=== PATIENT | female | born 1945 | race African-American/Black ===

== ENCOUNTER 2021-06-01 12:31 | Inpatient (IN) | payer OTHER, MEDICAID ==
[~2021-06-01] VITALS: Ht 167.6 cm; Wt 111.5 kg
[2021-06-01] MEDS ORDERED: PANTOPRAZOLE 40 MG TAB PO ONE (13:15)
[2021-06-01 14:20] LABS: Basophils # (auto) 0 10 ^3/uL (0-0.2); Basophils % (auto) 0.5 % (0.0-2.0); Eosinophils # (auto) 0 10 ^3/uL (0-0.8); Hematocrit 38.6 % (36.0-46.0); Hemoglobin 12.7 g/dL (12.2-16.2); Lymphocytes # (auto) 1.2 10 ^3/uL (0.4-5.4); Mean Corpuscular Hemoglobin 29.9 pg (28.0-32.0); Mean Corpuscular Hgb Conc. 32.8 g/dL (32.0-36.0); Monocytes # (auto) 0.5 10 ^3/uL (0-1.3); Monocytes % (auto) 11.5 % (0.0-12.0); Neutrophils # (auto) 2.5 10 ^3/uL (1.6-8.6); Nucleated Red Blood Cells % 0.1 %; Red Blood Cells 4.24 10^6/uL (4.0-5.20); Red Cell Distribution Width 14.3 % (11.8-14.3); White Blood Cell 4.2 10^3/uL (4.4-10.8)
[2021-06-01 15:02] LABS: Albumin 3.7 g/dL (3.4-5.0); Anion Gap 7 (5-15); Blood Urea Nitrogen 6 mg/dL (7-18); Calcium 8.9 mg/dL (8.5-10.1); Carbon Dioxide 27 mmol/L (21-32); Chloride 107 mmol/L (98-107); Glucose 94 mg/dL (74-106); Magnesium 2.3 mg/dL (1.6-2.6); Potassium 4.3 mmol/L (3.5-5.1); Sodium 141 mmol/L (136-145)
[2021-06-01 15:14] LABS: Alanine Aminotransferase 22 U/L (13-56); Alkaline Phosphatase 102 U/L (45-117); Aspartate Aminotransferase 25 U/L (15-37); BUN/Creatinine Ratio 6.7; Bilirubin, Total 1.3 mg/dL (0.2-1.0); GFR African American 80 mL/min; GFR Non-African American 66 mL/min; Total Protein 7.2 g/dL (6.4-8.2)
[2021-06-01 15:44] LABS: Urine Bacteria FEW /hpf (None Seen); Urine Blood Negative /uL (Negative); Urine Specific Gravity 1.005 (1.001-1.035); Urine WBC 1 /hpf (0 - 5)
[2021-06-01] MEDS ORDERED: hydrALAZINE HCL 20 MG/ML VL IV PRN ×2 (18:15→23:30)
[2021-06-01] MEDS ORDERED: HYDROcodone-ACET 5/325MG TAB PO PRN ×2 (18:15→23:30)
[2021-06-01] MEDS ORDERED: NITROGLYCERIN 0.4 MG SL TAB SL PRN ×2 (18:15→23:30)
[2021-06-01] MEDS ORDERED: METOPROLOL TARTRATE 25 MG TAB PO SCH (18:15)
[2021-06-01] MEDS ORDERED: ONDANSETRON HCL 4 MG/2 ML VIAL IV PRN ×2 (18:15→23:15)
[2021-06-01] MEDS ORDERED: MORPHINE SULF INJ 2 MG/ML SYRINGE 1ML IV PRN ×4 (18:15→23:30)
[2021-06-01] MEDS ORDERED: ACETAMINOPHEN 500 MG TAB PO PRN ×2 (18:15→23:30)
[2021-06-01 18:39] LABS: CRP High Sensitivity 0.5 mg/dL (< 0.3)
[2021-06-01] MEDS ORDERED: METOPROLOL TARTRATE 25 MG TAB ONE (20:33)
[2021-06-01] MEDS ORDERED: hydrALAZINE HCL 20 MG/ML VL ONE (21:39)
[2021-06-01] MEDS ORDERED: ATORVASTATIN 20 MG TAB PO SCH (22:00)
[2021-06-01 23:20] VITALS: BP 186/105
[2021-06-01 23:32] VITALS: BP 176/105
[2021-06-01] MEDS: METOPROLOL TARTRATE 25 MG TAB PO SCH (23:57)
[2021-06-01] MEDS: ATORVASTATIN 20 MG TAB PO SCH (23:58)
[2021-06-02] MEDS ORDERED: LEVO112T2 PO (00:17)
[2021-06-02] MEDS ORDERED: ASPI-543 PO (00:19)
[2021-06-02 04:28] VITALS: BP 152/79
[2021-06-02 08:30] VITALS: BP 136/71
[2021-06-02] MEDS ORDERED: PANTOPRAZOLE 40 MG TAB PO SCH (10:00)
[2021-06-02] MEDS ORDERED: ASPirin-EC 81 mg tab PO SCH (10:00)
[2021-06-02] MEDS ORDERED: LISINOPRIL 10 MG TAB PO SCH (10:00)
[2021-06-02] MEDS ORDERED: METOPROLOL TARTRATE 25 MG TAB PO SCH (10:00)
[2021-06-02] MEDS: PANTOPRAZOLE 40 MG TAB PO SCH (10:15)
[2021-06-02] MEDS: METOPROLOL TARTRATE 25 MG TAB PO SCH ×2 (10:16→21:23)
[2021-06-02] MEDS: LISINOPRIL 10 MG TAB PO SCH (10:16)
[2021-06-02] MEDS: ASPirin-EC 81 mg tab PO SCH (10:16)
[2021-06-02 12:44] VITALS: BP 135/69
[2021-06-02] MEDS ORDERED: cefTRIAXone 1GM/50ML D5W 50 ML IV ONE (14:45)
[2021-06-02 16:58] VITALS: BP 135/76
[2021-06-02 20:00] VITALS: BP_SYST 140; BP_SYST 143; BP_DIAS 63; BP_DIAS 77
[2021-06-02] MEDS: ATORVASTATIN 20 MG TAB PO SCH (21:22)
[2021-06-02] MEDS ORDERED: ATORVASTATIN 20 MG TAB PO SCH (22:00)
[2021-06-03] MEDS: LEVOTHYROXINE SODIUM 112 MCG TAB PO SCH (06:22)
[2021-06-03 07:20] LABS: Basophils # (auto) 0 10 ^3/uL (0-0.2); Basophils % (auto) 0.7 % (0.0-2.0); Eosinophils # (auto) 0 10 ^3/uL (0-0.8); Hematocrit 36.6 % (36.0-46.0); Hemoglobin 12.4 g/dL (12.2-16.2); Lymphocytes # (auto) 1.8 10 ^3/uL (0.4-5.4); Lymphocytes % (auto) 33.4 % (10.0-50.0); Mean Corpuscular Hemoglobin 30.5 pg (28.0-32.0); Mean Corpuscular Hgb Conc. 33.8 g/dL (32.0-36.0); Mean Corpuscular Volume 90.2 fL (80.0-100.0); Monocytes # (auto) 0.4 10 ^3/uL (0-1.3); Monocytes % (auto) 8.3 % (0.0-12.0); Neutrophils % (auto) 57.6 % (37.0-80.0); Nucleated Red Blood Cells % 0.3 %; Red Blood Cells 4.05 10^6/uL (4.0-5.20); Red Cell Distribution Width 14.7 % (11.8-14.3); White Blood Cell 5.2 10^3/uL (4.4-10.8)
[2021-06-03 07:39] LABS: Albumin 3.3 g/dL (3.4-5.0); Anion Gap 5 (5-15); Calcium 8.6 mg/dL (8.5-10.1); Carbon Dioxide 28 mmol/L (21-32); Chloride 108 mmol/L (98-107); Glucose 86 mg/dL (74-106); Sodium 141 mmol/L (136-145)
[2021-06-03 07:42] LABS: Alanine Aminotransferase 19 U/L (13-56); Aspartate Aminotransferase 18 U/L (15-37); BUN/Creatinine Ratio 11.7; Blood Urea Nitrogen 13 mg/dL (7-18); GFR African American 62 mL/min; GFR Non-African American 51 mL/min
[2021-06-03 07:53] LABS: Alkaline Phosphatase 93 U/L (45-117); Total Protein 6.1 g/dL (6.4-8.2)
[2021-06-03] MEDS ORDERED: IOHEXOL 350 MG/ML 100ML IJ ONE (08:50)
[2021-06-03 08:58] VITALS: BP 147/76
[2021-06-03] MEDS: ASPirin-EC 81 mg tab PO SCH (10:38)
[2021-06-03] MEDS: LISINOPRIL 10 MG TAB PO SCH (10:38)
[2021-06-03] MEDS: PANTOPRAZOLE 40 MG TAB PO SCH (10:39)
[2021-06-03] MEDS: METOPROLOL TARTRATE 25 MG TAB PO SCH ×2 (10:39→23:00)
[2021-06-03] MEDS: cefTRIAXone 1GM/50ML D5W 50 ML IV SCH (10:39)
[2021-06-03] MEDS ORDERED: LORazepam 2MG/ML-1ML VIAL IV ONE (11:45)
[2021-06-03 12:43] VITALS: BP 125/73
[2021-06-03 17:00] VITALS: BP 107/49
[2021-06-03 20:00] VITALS: BP 125/73
[2021-06-03 22:00] VITALS: BP 124/70
[2021-06-03] MEDS: ATORVASTATIN 20 MG TAB PO SCH (22:59)
[2021-06-04 06:19] LABS: Calcium 8.6 mg/dL (8.5-10.1); Potassium 4.5 mmol/L (3.5-5.1)
[2021-06-04] MEDS: LEVOTHYROXINE SODIUM 112 MCG TAB PO SCH (06:31)
[2021-06-04] MEDS: cefTRIAXone 1GM/50ML D5W 50 ML IV SCH (08:28)
[2021-06-04] MEDS: PANTOPRAZOLE 40 MG TAB PO SCH (08:29)
[2021-06-04] MEDS: METOPROLOL TARTRATE 25 MG TAB PO SCH ×2 (08:29→21:53)
[2021-06-04] MEDS: ASPirin-EC 81 mg tab PO SCH (08:29)
[2021-06-04 09:15] VITALS: BP 127/59
[2021-06-04] MEDS: SOD CHL 0.45% 1,000 ML IV SCH (12:40)
[2021-06-04 13:27] VITALS: BP 108/61
[2021-06-04 17:00] VITALS: BP 130/36
[2021-06-04] MEDS: APIXABAN 5 MG TAB PO SCH (21:43)
[2021-06-04] MEDS: ATORVASTATIN 20 MG TAB PO SCH (21:43)
[2021-06-04 22:00] VITALS: BP 128/95
[2021-06-05] MEDS ORDERED: SIMETHICONE 80 MG CHEWABLE TABLET PO PRN ×2 (02:30)
[2021-06-05] MEDS: SOD CHL 0.45% 1,000 ML IV SCH (02:44)
[2021-06-05 05:00] VITALS: BP 137/77
[2021-06-05] MEDS: LEVOTHYROXINE SODIUM 112 MCG TAB PO SCH (06:22)
[2021-06-05 07:05] LABS: Calcium 8.2 mg/dL (8.5-10.1); Potassium 4.6 mmol/L (3.5-5.1)
[2021-06-05 07:07] LABS: BUN/Creatinine Ratio 19.4
[2021-06-05] MEDS: cefTRIAXone 1GM/50ML D5W 50 ML IV SCH (08:37)
[2021-06-05] MEDS: METOPROLOL TARTRATE 25 MG TAB PO SCH (08:38)
[2021-06-05] MEDS: APIXABAN 5 MG TAB PO SCH (08:38)
[2021-06-05] MEDS: PANTOPRAZOLE 40 MG TAB PO SCH (08:38)
[2021-06-05 09:00] VITALS: BP 153/84
== END 2021-06-05 13:13 | disposition home or self-care (01) | DRG 308 ==
LOC: ER 12:31 → TELE 18:03 → ER 18:51 → TELE-CENTR 22:30
PROVIDERS: ADMIT Nurse Practitioner Acute Care; ATTEND Internal Medicine
DX: I48.0 Paroxysmal atrial fibrillation (principal); J18.9 Pneumonia, unspecified organism; N17.0 Acute kidney failure with tubular necrosis; I50.41 Acute combined systolic (congestive) and diastolic (congestive) heart failure; D68.69 Other thrombophilia; N39.0 Urinary tract infection, site not specified; I11.0 Hypertensive heart disease with heart failure; I27.20 Pulmonary hypertension, unspecified; Z20.822 Contact with and (suspected) exposure to COVID-19; K21.9 Gastro-esophageal reflux disease without esophagitis; E66.01 Morbid (severe) obesity due to excess calories; E03.9 Hypothyroidism, unspecified; E78.5 Hyperlipidemia, unspecified; I70.0 Atherosclerosis of aorta; F41.9 Anxiety disorder, unspecified; Z96.659 Presence of unspecified artificial knee joint; G47.00 Insomnia, unspecified; Z85.3 Personal history of malignant neoplasm of breast; Z79.899 Other long term (current) drug therapy; Z79.891 Long term (current) use of opiate analgesic; Z79.01 Long term (current) use of anticoagulants; Z82.49 Family history of ischemic heart disease and other diseases of the circulatory system; Z90.10 Acquired absence of unspecified breast and nipple; Z90.49 Acquired absence of other specified parts of digestive tract; Z90.710 Acquired absence of both cervix and uterus
CPT/HCPCS: 36415; 71045; 71260; 74177; 80048; 80053; 80061; 81001; 83735; 83880; 84443; 84484; 85025; 86141; 87086; 87426; 93005; 93306; 96374; G0378; J0696; J2405